=== PATIENT | male | born 1950 | race Caucasian/White ===

== ENCOUNTER 2020-10-24 07:59 | Day surgery (SDC) | payer MEDICARE ==
--- NOTE | 2020-10-23 14:48 | NUR ---
CONFIRMED PT APPT TOMORROW, RIDE POST PROCEDURE, NO BLOOD THINNERS AND NPO AFTER MIDNIGHT
[~2020-10-24] VITALS: Ht 180.3 cm; Wt 90.9 kg
[~2020-10-24 07:59] MED LIST: ALDACTONE100 MG PO; AMBIEN10 MG PO; ASPIRIN325 MG PO; FLAGYL500 MG PO; HYDROCODONE-APA1 TAB PO; KLONOPIN0.5 MG PO; LASIX40 MG PO; LEVAQUIN750 MG PO; LEXAPRO5 MG PO; LISINOPRIL2.5 MG PO; SAW PALMETTO450 MG PO; SOMA350 MG PO; XANAX0.5 MG PO; XANAX1 MG PO; ZESTORETIC 20/21 TAB PO
[2020-10-24 08:33] LABS: APTT 29.4 SECONDS (22.8-39.4); INR 1.3 (0.85-1.17)
[2020-10-24 08:39] LABS: ALBUMIN 2.6 g/dL (3.4-5.0); BILIRUBIN - TOTAL 1.33 mg/dL (0.2-1.3); CALCIUM 8.8 mg/dL (8.5-10.1); CARBON DIOXIDE 34.8 mmol/L (21.0-32.0); CREATININE - SERUM 1.5 mg/dL (0.6-1.3); POTASSIUM - SERUM 3.8 mmol/L (3.5-5.1); PROTEIN - SERUM 9.2 g/dL (6.4-8.2)
[2020-10-24 08:49] LABS: BASOPHILS 0.8 % (0-2); EOSINOPHILS 3.2 % (0-7); HEMATOCRIT 41.6 % (42.0-54.0); HEMOGLOBIN 14.2 g/dL (13.5-17.5); IMMATURE GRANULOCYTES 0.2 % (0-5); LYMPHOCYTES 15.3 % (15-50); MCH 32.1 pg (26.0-34.0); MCHC 34.1 g/dL (31.0-37.0); MCV 94.1 fL (80.0-100.0); MEAN PLATELET VOLUME 9.8 fL (7.4-10.4); MONOCYTES 8.7 % (2-11); NEUTROPHIL ABS# 4.69 10x3/uL (1.78-5.38); NEUTROPHILS 71.8 % (40-80); RBC 4.42 10x6/uL (4.20-6.10); RDW 13.2 % (11.5-14.5); WBC 6.5 10x3/uL (4.8-10.8)
[2020-10-24 08:52] LABS: PLATELET COUNT 202 10x3/uL (130-400)
[2020-10-24 09:04] VITALS: Ht 180.3 cm; Wt 90.9 kg
--- NOTE | 2020-10-24 12:46 | NUR ---
1055 OFFERED PT A TRAY BUT REFUSED. DRINKING FLUIDS.1145 ASSITED TO BATHROOM.
--- NOTE | 2020-10-24 14:45 | NUR ---
1345 IV REMOVED AND INSTRUCTIONS GIVEN TO PT.
== END 2020-10-24 14:15 | disposition home or self-care (01) ==
LOC: D.RAD 07:59
PROVIDERS: Specialist; ATTEND Internal Medicine Hematology & Oncology
DX: R97.8 Other abnormal tumor markers (principal); R18.8 Other ascites; I10 Essential (primary) hypertension; C25.2 Malignant neoplasm of tail of pancreas; K74.60 Unspecified cirrhosis of liver

== ENCOUNTER 2020-11-08 07:50 | Emergency (ER) | payer MEDICARE ==
[~2020-11-08] VITALS: Ht 180.3 cm; Wt 88.6 kg
[2020-11-08 08:30] VITALS: Ht 180.3 cm; Wt 88.6 kg
[2020-11-08 08:48] LABS: BASOPHILS 0.6 % (0-2); EOSINOPHILS 7.9 % (0-7); HEMATOCRIT 40.3 % (42.0-54.0); HEMOGLOBIN 13.6 g/dL (13.5-17.5); IMMATURE GRANULOCYTES 0.2 % (0-5); LYMPHOCYTE ABS# 0.84 10x3/uL (1.32-3.57); LYMPHOCYTES 15.8 % (15-50); MCH 31.6 pg (26.0-34.0); MCHC 33.7 g/dL (31.0-37.0); MCV 93.5 fL (80.0-100.0); MEAN PLATELET VOLUME 9.9 fL (7.4-10.4); MONOCYTES 9.2 % (2-11); NEUTROPHIL ABS# 3.51 10x3/uL (1.78-5.38); NEUTROPHILS 66.3 % (40-80); RBC 4.31 10x6/uL (4.20-6.10); RDW 12.8 % (11.5-14.5); WBC 5.3 10x3/uL (4.8-10.8)
[2020-11-08 08:49] LABS: PLATELET COUNT 150 10x3/uL (130-400)
[2020-11-08 09:15] LABS: ANION GAP 10.4 mmol/L (8-16); CALCIUM 8.4 mg/dL (8.5-10.1); CREATININE - SERUM 1.8 mg/dL (0.6-1.3); POTASSIUM - SERUM 4.4 mmol/L (3.5-5.1)
[2020-11-08 09:19] LABS: ALBUMIN 2.4 g/dL (3.4-5.0); BILIRUBIN - TOTAL 0.91 mg/dL (0.2-1.3); PROTEIN - SERUM 8.5 g/dL (6.4-8.2)
[2020-11-08 10:28] LABS: INR 1.35 (0.85-1.17); PROTIME 15.5 SECONDS (11.6-15.0)
[2020-11-08 14:00] VITALS: BP 112/65
== END 2020-11-08 14:32 | disposition home or self-care (01) ==
LOC: D.ER 07:50
PROVIDERS: Emergency Medicine; Radiology Vascular & Interventional Radiology
DX: R18.8 Other ascites (principal); K86.9 Disease of pancreas, unspecified; K74.60 Unspecified cirrhosis of liver

== ENCOUNTER 2020-11-20 13:12 | Inpatient (IN) | payer MEDICARE ==
[~2020-11-20] VITALS: Ht 180.3 cm; Wt 81.6 kg
[2020-11-20 13:48] LABS: BASOPHILS 1.2 % (0-2); EOSINOPHILS 8.9 % (0-7); HEMOGLOBIN 13.3 g/dL (13.5-17.5); IMMATURE GRANULOCYTES 0.1 % (0-5); LYMPHOCYTE ABS# 0.77 10x3/uL (1.32-3.57); LYMPHOCYTES 11.3 % (15-50); MCH 31.7 pg (26.0-34.0); MCHC 34.1 g/dL (31.0-37.0); MCV 93.1 fL (80.0-100.0); MEAN PLATELET VOLUME 9.8 fL (7.4-10.4); MONOCYTES 11.6 % (2-11); NEUTROPHIL ABS# 4.57 10x3/uL (1.78-5.38); NEUTROPHILS 66.9 % (40-80); PLATELET COUNT 173 10x3/uL (130-400); RBC 4.19 10x6/uL (4.20-6.10); RDW 13.3 % (11.5-14.5); WBC 6.8 10x3/uL (4.8-10.8)
[2020-11-20 13:58] LABS: CALC OSMOLALITY 274 mosm/kg (275-300); CALCIUM 8.5 mg/dL (8.5-10.1); CARBON DIOXIDE 30.1 mmol/L (21.0-32.0); CHLORIDE - SERUM 100 mmol/L (98-107); CREATININE - SERUM 1.4 mg/dL (0.6-1.3); POTASSIUM - SERUM 4.8 mmol/L (3.5-5.1); SODIUM 132 mmol/L (136-145); UREA NITROGEN 28 mg/dL (7-18); eGFR NON AFRICAN AMERICAN 53 mL/min (90-120)
[2020-11-20 13:59] LABS: GLUCOSE 170 mg/dL (74-106)
[2020-11-20 14:13] LABS: APTT 25.8 SECONDS (22.8-39.4); INR 1.28 (0.85-1.17); PROTIME 14.8 SECONDS (11.6-15.0)
[2020-11-20 14:15] LABS: ALBUMIN 2.4 g/dL (3.4-5.0); ALKALINE PHOSPHATASE 234 U/L (30-120); ALT (SGPT) 28 U/L (10-68); AMYLASE - SERUM 29 U/L (25-115); BILIRUBIN - TOTAL 0.98 mg/dL (0.2-1.3); CREATINE KINASE 30 UL (21-232); LIPASE 49 U/L (73-393); MAGNESIUM - SERUM 2.4 mg/dL (1.8-2.4); PROTEIN - SERUM 8.5 g/dL (6.4-8.2); THYROID STIMULATING HORMONE 2.04 uIU/mL (0.36-3.74); TROPONIN-I < 0.017 ng/mL (0.000-0.060)
[2020-11-20 15:10] VITALS: BP 143/90
[2020-11-20 16:20] LABS: UDS - AMPHET NEGATIVE QUAL (NEGATIVE); UDS - BARB NEGATIVE QUAL (NEGATIVE); UDS - BENZO NEGATIVE QUAL (NEGATIVE); UDS - COCAINE NEGATIVE QUAL (NEGATIVE); UDS - OPIATE NEGATIVE QUAL (NEGATIVE); UDS - PCP NEGATIVE QUAL (NEGATIVE); UDS - THC NEGATIVE QUAL (NEGATIVE)
[2020-11-20 16:40] LABS: BILIRUBIN NEGATIVE (NEGATIVE); KETONE NEGATIVE (NEGATIVE); NITRITE NEGATIVE (NEGATIVE); UROBILINOGEN NORMAL mg/dL (< 2)
--- NOTE | 2020-11-20 18:43 | NUR ---
PT TO MRI FOR SCAN OF BRAIN. ONCE POSITIONED AND IN SCANNER PT BECAME AGITATED MOVING, RAISING HEAD, TRYING TO GET OUT OF SCANNER. CALLED ER TO SEE IF DR PIERRE WANTED TO GIVE ANY MEDS BEFORE I RETURNED HIM TO THE ER. PTS NURSE STATED HE DIDN'T WANT TO MEDICATE AND TO NOTE IN THE CHART THAT PT WOULD NOT HOLD STILL. HE IS VERY CONFUSED AND I WAS UNABLE TO GET HIM TO UNDERSTAND WHAT I WAS DOING AND WHY WE NEEDED THIS TEST. I ALSO UPDATED HIS WHO WAS IN HIS ROOM IN THE ER. EXAM WILL BE CANCELLED AT THIS TIME.
--- NOTE | 2020-11-20 18:52 | NUR ---
MRI CALLLED AND STATES THAT PT WILL NOT BE STILL, HE WAS WANTING TO LEAVE. NOTIFIED THAT MRI WAS NOT SUCCESSFUL
[2020-11-20 19:00] VITALS: BP 132/69
--- NOTE | 2020-11-20 19:02 | NUR ---
REPORT GIVEN TO RN ON FLOOR, WITH VERBAL ACKNOWLEDGMENT OBTAINED
--- NOTE | 2020-11-20 19:57 | NUR ---
REPORT RECEIVED, WILL CONT POC. PT ALERT WITH STIMULATION AND ORIENTED TO SELF AND CITY AT TIME. PT NOT ABLE TO IDENTIFY FAMILY IN THE ROOM. AT THIS TIME, PT IS NOT ALERT OR ORIENTED ENOUGH TO ASSESS SUICIDE RISK OR TO OBTAIN A HISTORY. SPOKE WITH SON IN LAW, CHOLO, WHO STATED THAT HE "THINKS" THE PT HAS HTN, AND STATED THAT THE PT HAS A NEW DIAGNOSES OF CHIROSIS OF UNK CAUSE AND PANCREATIC CANCER. CHOLO ALSO STATED THAT PT DOES NOT HAVE A HISTORY OF DRUG ABUSE AND DOES NOT DRINK. CHOLO STATED THAT PT DOES TAKE HYDROCODONE FOR CHRONIC PAIN AND LASIX, THOUGH HE IS UNSURE OF DOSES. CHOLO STATED THAT HE WOULD ATTEMPT TO GET THIS NURSE A LIST OF HIS MEDICATIONS BY THE MORNING, STATED THAT HE DOES KNOW THAT PT TAKES A LOT OF HOME MEDS. BED IS LOCKED AND LOWERED, CL IS IN REACH. BED ALARM ON, PTS ROOM NEAR NURSES STATION WITH DOOR OPEN FOR EASY OBSERVATION. WILL CONT TO MONITOR.
[2020-11-20 23:15] VITALS: BP 132/69; BMI 25.1
[2020-11-21] VITALS (11 sets, daily range): BP systolic 78–113; BP diastolic 39–83
--- NOTE | 2020-11-21 01:22 | NUR ---
RESPONDED TO PTS BED ALARM, PT ATTEMPTING TO GET OUT OF BED. EXPLAINED TO PT THAT HE COULD NOT GET OUT OF BED AT THIS TIME. THIS NURSE WAS ABLE TO ORIENT THE PT X3 FOR THE FIRST TIME SINCE ADMISSION. ASKED PT IF HE REMEMBERS FALLING AT HOME. PT STATED HE DID REMEMBER. ASKED PT IF HE KNOWS WHY HE FELL. PT STATED THAT HE TOOK A BUNCH OF MUSCLE RELAXERS. PT STATED "WHAT'S THE POINT OF LIVING IF IM GOING TO OF THIS CHIROSIS?". ASKED PT IF HE WAS TRYING TO KILL HIMSELF BY TAKING A BUNCH OF MUSCLE RELAXERS. PT STATED THAT HE WAS TRYING TO KILL HIMSELF BUT AFTER TAKING 8 PILLS HE DECIDED HE WANTED TO LIVE AND DID NOT FINISH THE REMAINDER OF THE PILL BOTTLE. ASKED PT HOW HE GOT THE MUSCLE RELAXERS AND WHERE HIS WAS AT THE TIME. PT STATED THAT THE PILLS BELONG TO HIS AND THAT HIS WAS IN THE KITCHEN AT THE TIME HE TOOK THE PILLS. INSTRUCTED CONTROL CABINET ASSEMBLER TO SIT IN ROOM WITH PT FOR SUICIDE WATCH, NOTIFIED HOUSE SUP AND ART COORDINATOR. HOUSE SUP NOTIFIED PSYCH FOR EVAL. WILL CONT TO MONITOR.
--- NOTE | 2020-11-21 02:25 | NUR ---
DR ALBARADO NOTIFIED AND REVIEWED PT's BEHAVIOR AND ASSESSMENT RESULTS. PT IS A LOW RISK PER DR ALBARADO. DR ALBARADO STATED TO GIVE RESOURCES TO PT AT TIME OF DISCHARGE. NO FURTHER ORDERS AT THIS TIME. RESOURCES REVIEWED WITH PT AND HE VERBALIZED UNDERSTANDING.
[2020-11-21 06:24] LABS: BASOPHILS 0.8 % (0-2); EOSINOPHILS 12.6 % (0-7); HEMATOCRIT 35.9 % (42.0-54.0); HEMOGLOBIN 12.1 g/dL (13.5-17.5); IMMATURE GRANULOCYTES 0.2 % (0-5); LYMPHOCYTE ABS# 0.79 10x3/uL (1.32-3.57); LYMPHOCYTES 12.6 % (15-50); MCH 31.3 pg (26.0-34.0); MCHC 33.7 g/dL (31.0-37.0); MCV 92.8 fL (80.0-100.0); MEAN PLATELET VOLUME 9.6 fL (7.4-10.4); MONOCYTES 11.8 % (2-11); NEUTROPHIL ABS# 3.87 10x3/uL (1.78-5.38); PLATELET COUNT 156 10x3/uL (130-400); RBC 3.87 10x6/uL (4.20-6.10); RDW 13.4 % (11.5-14.5); WBC 6.3 10x3/uL (4.8-10.8)
[2020-11-21 06:57] LABS: ALBUMIN 1.9 g/dL (3.4-5.0); ANION GAP 6.5 mmol/L (8-16); BILIRUBIN - TOTAL 0.88 mg/dL (0.2-1.3); CALCIUM 8.2 mg/dL (8.5-10.1); CARBON DIOXIDE 27.8 mmol/L (21.0-32.0); CREATININE - SERUM 1.1 mg/dL (0.6-1.3); MAGNESIUM - SERUM 2.1 mg/dL (1.8-2.4); POTASSIUM - SERUM 4.3 mmol/L (3.5-5.1); PROTEIN - SERUM 7.1 g/dL (6.4-8.2)
--- NOTE | 2020-11-21 07:13 | NUR ---
RECEIVE BEDSIDE SHIFT REPORT. PATIENT DROWSY BUT ORIENTED X4. BED ALARM ON. CALL LIGHT IN REACH. ICED WATER GIVEN. DENIES ANY OTHER NEEDS AT THIS TIME. CONTINUE POC AND SAFETY PRECAUTIONS.
[2020-11-21 10:40] LABS: INR 1.3 (0.85-1.17)
--- NOTE | 2020-11-21 10:41 | NUR ---
STUDENT NURSE NOTIFIED THIS NURSE OF BP 67/36 WITH A MANUAL RECHECK OF 58/36. PAGED ANGI DELANEYN; 1000ML BOLUS ORDERED. WILL RECHECK BP. PATIENT DROWSY.
--- NOTE | 2020-11-21 10:58 | NUR ---
RECHECKED BP 95/56. PATIENT STILL DROWSY BUT AROUSES TO SPEECH
--- NOTE | 2020-11-21 16:45 | NUR ---
PAGED ELAINA, BALDEMAR FOR BP 68/35. ORDERED 500ML BOLUS. NO CRACKLES NOTED IN LUNGS. WILL REASSESS BP. IF DROPS AGAIN WILL PAGE CARDIOLOGY
[2020-11-21] MEDS ORDERED: SOMA250 MG PO (17:40)
--- NOTE | 2020-11-21 17:58 | NUR ---
AFTER 500ML BOLUS PRESSURE 79/48 PATIENT SLEEPING, AROUSES TO VOICE. AT BEDSIDE. CALLED DR. BROWER; ORDERS TO HAVE FLUIDS GOING AT 150ML/HR FOR A FEW HOURS. IF NOT BETTER TONIGHT PAGE AGAIN, MAY NEED TO GO TO ICU.
[2020-11-22] VITALS (14 sets, daily range): BP systolic 98–135; BP diastolic 40–92
[2020-11-22 04:25] LABS: BASOPHILS 0.6 % (0-2); EOSINOPHILS 8.2 % (0-7); HEMATOCRIT 37.3 % (42.0-54.0); HEMOGLOBIN 12.3 g/dL (13.5-17.5); IMMATURE GRANULOCYTES 0.2 % (0-5); LYMPHOCYTE ABS# 0.58 10x3/uL (1.32-3.57); LYMPHOCYTES 10.8 % (15-50); MCH 31.2 pg (26.0-34.0); MCV 94.7 fL (80.0-100.0); MEAN PLATELET VOLUME 10.4 fL (7.4-10.4); MONOCYTES 12.1 % (2-11); NEUTROPHIL ABS# 3.68 10x3/uL (1.78-5.38); NEUTROPHILS 68.1 % (40-80); PLATELET COUNT 171 10x3/uL (130-400); RBC 3.94 10x6/uL (4.20-6.10); RDW 13.3 % (11.5-14.5); WBC 5.4 10x3/uL (4.8-10.8)
[2020-11-22 05:03] LABS: ALBUMIN 1.9 g/dL (3.4-5.0); ANION GAP 9.8 mmol/L (8-16); BILIRUBIN - TOTAL 0.84 mg/dL (0.2-1.3); CALCIUM 7.9 mg/dL (8.5-10.1); CARBON DIOXIDE 25.4 mmol/L (21.0-32.0); MAGNESIUM - SERUM 1.8 mg/dL (1.8-2.4); POTASSIUM - SERUM 4.2 mmol/L (3.5-5.1)
[2020-11-22 05:04] LABS: CREATININE - SERUM 1.4 mg/dL (0.6-1.3)
[2020-11-22 06:07] LABS: INR 1.28 (0.85-1.17); PROTIME 14.8 SECONDS (11.6-15.0)
--- NOTE | 2020-11-22 07:15 | NUR ---
PT LAYING IN BED, ORIENTED TO PERSON AND PLACE, FORGETFUL AT TIMES, CALL LIGHT IN REACH, WILL MONITOR
--- NOTE | 2020-11-22 08:00 | NUR ---
BREAKFAST TRAY SERVED, PT SITTING UP IN RECLINER FEEDING SELF
--- NOTE | 2020-11-22 09:00 | NUR ---
PT BACK IN BED SLEEPING, CALL LIGHT IN REACH, BED ALARM ON, WILL MONITOR
--- NOTE | 2020-11-22 11:00 | NUR ---
PT GETTING OUT OF THE BED AND BEING AGGRESSIVE TOWARD STAFF, SOFT WRIST RESTRAINTS PLACED ON PT AT 1030, 1100: PT CALM AND RESTRAINTS REMOVED AT THIS TIME
--- NOTE | 2020-11-22 11:30 | NUR ---
REPORT CALLED TO KAMILA ON MED SURG
--- NOTE | 2020-11-22 11:52 | NUR ---
PT TRANSFERRED TO 2219 VIA WHEELCHAIR, BELONGINGS SENT WITH PATIENT, PT ALERT AND ORIENTED AT THIS TIME
--- NOTE | 2020-11-22 11:59 | NUR ---
TO ROOM 2220 FROM ICU VIA WHEELCHAIR. PATIENT IS WITHOUT DISTRESS. ORIENTATION TO ROOM. FALL PREVENTION INITIATED.
--- NOTE | 2020-11-22 12:07 | NUR ---
FALL PREVENTION WITH RADHA MAT. BED ALARM BROKEN AND SOUNDS ALL THE TIME.IS INSTRUCTED AND SCD'S PLACED ON PATIENT.RASH NOTED TO LEGS AND SIDES AND PARTIAL BACK (HEALING RASH).
--- NOTE | 2020-11-22 14:55 | NUR ---
CALLED OUT OF ROOM 2217. PATIENT FOUND SITTING IN FLOOR BY YARELI BYERS RN. PATIENT PLACED BACK IN BED. RADHA ALARM TURNED ON. RADHA ALARM HAD BEEN TURNED OFF.
--- NOTE | 2020-11-22 15:30 | NUR ---
SPOKE WITH DOT ETCHERDWIGHT VORA. PATIENT MUST HAVE AND REMAIN ON TELEMETRY AT ALL TIMES OR TRANSFER BACK TO ICU.
--- NOTE | 2020-11-22 15:35 | NUR ---
SR 90 ON MONITOR PER [employer].
--- NOTE | 2020-11-22 16:00 | NUR ---
SPOKE WITH LAND DEVELOPMENT MANAGER TO INFORM HER PATIENT MUST REMAIN ON TELEMETRY AT ALL TIMES OR TRANSFER BACK TO ICU.
--- NOTE | 2020-11-22 16:13 | CN ---
PATIENT NAME:ZEUS SANDERSON SR MEDICAL RECORD: [id number] : 48 LOCATION:D.MS [facility] ADMIT DATE: 11/21/20 ACCOUNT: [id number] CONSULTING PHYSICIAN: ANGELITA ALBARADO MD REFERRING PHYSICIAN: HORTENCIA LANE MD DATE OF CONSULTATION: 11/21/2020 IDENTIFYING DATA: The patient is 70 years old and he was admitted to the hospital secondary to ascites. CHIEF COMPLAINT: Suicidal thoughts. HISTORY OF PRESENT ILLNESS: The patient is a very nice and very sick man. He has what is probably going to cuff turner to be pancreatic cancer. He has been very uncomfortable with the hepatic ascites that is present and tells me that he did decide to kill himself by taking some of his 's muscle relaxants, but then decided not to. He expresses a great deal of helplessness and hopelessness, but goes on to say that he is not going to hurt himself because of the pain it would cause to his . He has had some sort of business arrangement with his son that has not worked out and he is very angry with his son. The patient is limited in his insight, but tells me that he would not hurt himself because of his jew beliefs. ASSESSMENT: Major depression. PLAN: I think the patient should be on antidepressant medication and does need outpatient psychiatric followup. If he has a return of these suicidal thoughts, he will need to be hospitalized on the behavioral unit. I have recommended it to him at this time because of the severity of his depression, but he has declined. As he has never had suicidal thoughts before and has no past psychiatric history, I think it is reasonable to try him as an outpatient and I do not think he currently meets criteria for an involuntary admission to the behavioral unit. TRANSINT:[id number] Voice Confirmation ID: [id number] DOCUMENT ID: [id number] ANGELITA ALBARADO MD at 1613 CC: [id number] DICTATION DATE: 11/21/20 1631 LIGHT BULB TESTER: 11/21/20 2339 ADM IN [facility] [address] [place] [address]
[2020-11-23] VITALS: BP 131/81
[2020-11-23 04:00] VITALS: BP 120/80
[2020-11-23 05:39] LABS: BASOPHILS 0.5 % (0-2); EOSINOPHILS 8.4 % (0-7); HEMATOCRIT 35.8 % (42.0-54.0); HEMOGLOBIN 11.8 g/dL (13.5-17.5); IMMATURE GRANULOCYTES 0.2 % (0-5); LYMPHOCYTE ABS# 0.83 10x3/uL (1.32-3.57); LYMPHOCYTES 14.3 % (15-50); MCH 31.1 pg (26.0-34.0); MCV 94.5 fL (80.0-100.0); MEAN PLATELET VOLUME 10.3 fL (7.4-10.4); MONOCYTES 14.8 % (2-11); NEUTROPHIL ABS# 3.58 10x3/uL (1.78-5.38); NEUTROPHILS 61.8 % (40-80); PLATELET COUNT 176 10x3/uL (130-400); RBC 3.79 10x6/uL (4.20-6.10); RDW 13.8 % (11.5-14.5); WBC 5.8 10x3/uL (4.8-10.8)
--- NOTE | 2020-11-23 06:14 | NUR ---
Pt is in bed resting at this time. Camera is in room for visual. Pt has utilized call light appropriately to request assist t/o the night. Did c/o itching once and rec'd PRN benedryl per order with good results.
[2020-11-23 06:38] LABS: ALBUMIN 2.1 g/dL (3.4-5.0); BILIRUBIN - TOTAL 1.26 mg/dL (0.2-1.3); CALCIUM 7.9 mg/dL (8.5-10.1); CARBON DIOXIDE 22.6 mmol/L (21.0-32.0); CREATININE - SERUM 1.1 mg/dL (0.6-1.3); POTASSIUM - SERUM 3.6 mmol/L (3.5-5.1); PROTEIN - SERUM 7.4 g/dL (6.4-8.2)
[2020-11-23 06:39] LABS: MAGNESIUM - SERUM 2.4 mg/dL (1.8-2.4)
[2020-11-23 06:47] LABS: INR 1.43 (0.85-1.17); PROTIME 16.2 SECONDS (11.6-15.0)
[2020-11-23 08:28] VITALS: BP 117/74
--- NOTE | 2020-11-23 09:58 | EC ---
PATIENT:ZEUS SANDERSON SR DATE OF SERVICE: 11/20/20 SEX: M MEDICAL RECORD: [id number] DATE OF : 48 LOCATION:D.[facility] AGE OF PATIENT: 70 ADMISSION DATE: 11/21/20 REFERRING PHYSICIAN: INTERPRETING PHYSICIAN: ANNE ALEXANDRA MD ECHOCARDIOGRAM REPORT ECHO CHARGES 5 ECHO LIMITED Date: 11/21/20 CLINICAL DIAGNOSIS: ARRY ECHOCARDIOGRAPHIC MEASUREMENTS (adult normal given) AC root (d.<3.7cm) cm LV Septum d (<1.2 cm> 1.1 cm Valve Excursion cm LV Septum (systole) 1.5 cm Left Atria (s.<4.0cm> cm LVPW d(<1.2cm) 1.4 cm RV (d.<2.3cm) 3.6 cm LVPW (sytole) 1.6 cm LV diastole(<5.6CM) 5.5 cm MV E-F(>70mm/sec) cm LV systole 4.3 cm LVOT Diameter 1.8 cm MV exc.(>10mm) 1.5 cm Est.ejection fraction (50-75%) % DOPPLER: LVIT cm/sec A cm/sec E cm/sec LA cm/sec RVSP 26 mmHg LVOT cm/sec AOP1/2T m/s Asc. Ao cm/sec RVOT cm/sec RA cm/sec PA cm/sec AV Gradient Peak mmHg AV Mean mmHg AV Area cm MV Gradient Peak mmHg MV Mean mmHg MV Area cm COMMENTS: Community Services Coordinator: Camila [facility] Systems Support Engineer: 3 Dr. Wing TAPE# Pericardial Effusion N DATE OF SERVICE: Adequate 2D, color-flow imaging, spectral Doppler, and M-Mode FINDINGS: Borderline LVH. LV internal dimensions are normal. Wall motion is normal. EF is greater than or equal to 55%. Aortic valve is tricuspid. No evidence of stenosis by Doppler interrogation. Left atrium grossly appears normal. Mitral valve shows no prolapse. Trivial MR. Right side is grossly normal. Trivial TR. ECHOCARDIOGRAM REPORT [id number] ZEUS SANDERSON SR TRANSINT:[id number] Voice Confirmation ID: [id number] DOCUMENT ID: [id number] ANNE ALEXANDRA MD at 0958 CC: [id number] DICTATION DATE: 11/21/20 1154 TRIBAL COUNCIL MEMBER: 11/21/20 1302 ADM IN [facility] [address] [facility] [address]
--- NOTE | 2020-11-23 10:00 | NUR ---
ASSESSMENT PER FLOW SHEET. PATIENT IS WITHOUT DISTRESS. FALL PREVENTION IN PLACE. MONITOR. DOOR OPEN
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
[2020-11-23 13:06] VITALS: BP 119/72
[2020-11-23 13:36] VITALS: Ht 180.3 cm; Wt 81.6 kg
--- NOTE | 2020-11-23 15:07 | NUR ---
FAMILY TO VISIT. PATIENT IS WITHOUT NEEDS.CALL LIGHT IN REACH
[2020-11-23 17:02] VITALS: BP 112/77
[2020-11-23 19:35] VITALS: BP 141/88
[2020-11-24 00:38] VITALS: BP 126/85
--- NOTE | 2020-11-24 03:00 | NUR ---
I have reviewed this patient and I concur with the Shift Assessment completed by the Licensed Practical Nurse today this shift.
[2020-11-24 05:12] LABS: BASOPHILS 0.7 % (0-2); EOSINOPHILS 10.4 % (0-7); HEMATOCRIT 33.2 % (42.0-54.0); IMMATURE GRANULOCYTES 0.2 % (0-5); LYMPHOCYTE ABS# 0.88 10x3/uL (1.32-3.57); MCH 31.3 pg (26.0-34.0); MCHC 33.1 g/dL (31.0-37.0); MCV 94.3 fL (80.0-100.0); MEAN PLATELET VOLUME 9.9 fL (7.4-10.4); MONOCYTES 13.1 % (2-11); NEUTROPHIL ABS# 3.27 10x3/uL (1.78-5.38); NEUTROPHILS 59.6 % (40-80); PLATELET COUNT 154 10x3/uL (130-400); RBC 3.52 10x6/uL (4.20-6.10); RDW 13.7 % (11.5-14.5); WBC 5.5 10x3/uL (4.8-10.8)
[2020-11-24 05:21] LABS: INR 1.23 (0.85-1.17); PROTIME 14.4 SECONDS (11.6-15.0)
[2020-11-24 05:29] LABS: ALBUMIN 1.9 g/dL (3.4-5.0); ANION GAP 11.7 mmol/L (8-16); BILIRUBIN - TOTAL 1.09 mg/dL (0.2-1.3); CALCIUM 7.9 mg/dL (8.5-10.1); CREATININE - SERUM 1.1 mg/dL (0.6-1.3); POTASSIUM - SERUM 3.7 mmol/L (3.5-5.1); PROTEIN - SERUM 6.9 g/dL (6.4-8.2)
[2020-11-24 08:46] VITALS: BP 117/67
--- NOTE | 2020-11-24 10:19 | NUR ---
RESTING IN BED, EYES CLOSED, NO DISTRESS NOTED, IV INFUSING PER L WRIST, BED ALARMS ON, CONT TO MONITOR SAFETY AND DT
[2020-11-24 12:30] VITALS: BP 129/71
--- NOTE | 2020-11-24 16:11 | NUR ---
IN ROOM, CONT TO MONITOR FOR DT SYMPTOMS
--- NOTE | 2020-11-24 16:40 | NUR ---
CALLED TO ROOM BY TO FIND PT IN THE FLOOR IN THE BATHROOM, NO INJURIES NOTED, PT DENIES PAIN, RETURNED TO BED BY ZIGGY FREITAS AND KELLY FREITAS, AYESHA LOJA, ROLLING MILL OPERATOR AND SANDIE REYES AWARE
[2020-11-24 18:07] VITALS: BP 139/90
--- NOTE | 2020-11-24 19:00 | NUR ---
BEDSIDE REPORT RECEIVED AND CARE OF PT ASSUMED. PT LYING IN SUPINE POSITION AT THIS TIME...AGGITATED AND TRYING TO GET OUT OF BED. ASSISTED PT IN USING URINAL. POSITIONED FOR COMFORT.
[2020-11-24 20:54] VITALS: BP 121/70
--- NOTE | 2020-11-24 20:57 | NUR ---
HS MEDICATIONS GIVEN. WILL CONTINUE TO MONITOR FOR NEEDS.
--- NOTE | 2020-11-24 22:48 | NUR ---
PT RESTING ON LEFT SIDE WITH EYES CLOSED. VIDEO MONITORING IN PROGRESS. SIDE RAILS UP X2 FOR SAFETY. BED ALARM IN USE.
[2020-11-25 01:09] VITALS: BP 131/76
[2020-11-25 05:39] VITALS: BP 115/72
[2020-11-25 05:59] LABS: BASOPHILS 0.6 % (0-2); HEMATOCRIT 35.6 % (42.0-54.0); HEMOGLOBIN 11.8 g/dL (13.5-17.5); IMMATURE GRANULOCYTES 0.3 % (0-5); LYMPHOCYTE ABS# 0.96 10x3/uL (1.32-3.57); MCH 31.4 pg (26.0-34.0); MCHC 33.1 g/dL (31.0-37.0); MCV 94.7 fL (80.0-100.0); MEAN PLATELET VOLUME 10.2 fL (7.4-10.4); MONOCYTES 11.1 % (2-11); NEUTROPHIL ABS# 4.02 10x3/uL (1.78-5.38); PLATELET COUNT 170 10x3/uL (130-400); RBC 3.76 10x6/uL (4.20-6.10); RDW 13.9 % (11.5-14.5); WBC 6.4 10x3/uL (4.8-10.8)
[2020-11-25 06:07] LABS: PROTIME 16.6 SECONDS (11.6-15.0)
[2020-11-25 06:17] LABS: ALBUMIN 2.1 g/dL (3.4-5.0); ANION GAP 12.9 mmol/L (8-16); BILIRUBIN - TOTAL 1.1 mg/dL (0.2-1.3); CALCIUM 7.7 mg/dL (8.5-10.1); CARBON DIOXIDE 23.5 mmol/L (21.0-32.0); CREATININE - SERUM 1.1 mg/dL (0.6-1.3); POTASSIUM - SERUM 3.4 mmol/L (3.5-5.1); PROTEIN - SERUM 7.4 g/dL (6.4-8.2)
[2020-11-25 06:28] LABS: INR 1.48 (0.85-1.17)
--- NOTE | 2020-11-25 09:08 | NUR ---
AAOX2, DISORIENTED TO TIME AND SITUATION. SITUATED COMFORTABLY IN BED. SAT UPRIGHT, EATING BREAKFAST. ADMINISTERED MEDICATION, NO DIFFICULTIES. DENIES ANY NEEDS AT THIS TIME. BED IN LOWEST POSITION, BED RAILS X2, WITH TRAY OVER LAP. WILL CONTINUE POC.
[2020-11-25 09:11] VITALS: BP 112/69
--- NOTE | 2020-11-25 11:11 | NUR ---
I have reviewed this patient and I concur with the Shift Assessment completed by the Licensed Practical Nurse today this shift.
[2020-11-25 13:08] VITALS: BP 113/62
--- NOTE | 2020-11-25 15:21 | NUR ---
ADMINISTERED MEDICATION, NO DIFFICULTIES. RESTING IN BED. FAMILY AT BEDSIDE. DENIES ANY NEEDS AT THIS TIME. WILL CONTINUE POC.
[2020-11-25 17:16] VITALS: BP 113/69
--- NOTE | 2020-11-25 19:00 | NUR ---
BEDSIDE REPORT RECEIVED AND CARE OF PT ASSUMED. PT LYING IN SUPINE POSITION WITH EYES CLOSED. IV TO LEFT HAND PATENT WITH NS INFUSING AT 100 ML/HR. TELEMETRY IN PLACE PER ORDER AND READING SR AT THIS ASSESSMENT. BED ALARM AND VIDEO MONITORING IN USE FOR SAFETY.
[2020-11-25 20:19] VITALS: BP 126/79
--- NOTE | 2020-11-25 20:21 | NUR ---
HS MEDICATIONS GIVEN. WILL CONTINUE TO MONITOR FOR NEEDS.
[2020-11-26 04:58] LABS: BASOPHILS 0.7 % (0-2); EOSINOPHILS 10.2 % (0-7); HEMOGLOBIN 11.4 g/dL (13.5-17.5); IMMATURE GRANULOCYTES 0.2 % (0-5); LYMPHOCYTE ABS# 0.85 10x3/uL (1.32-3.57); LYMPHOCYTES 15.8 % (15-50); MCH 31.8 pg (26.0-34.0); MCHC 33.5 g/dL (31.0-37.0); MCV 94.7 fL (80.0-100.0); MEAN PLATELET VOLUME 10.1 fL (7.4-10.4); NEUTROPHIL ABS# 3.23 10x3/uL (1.78-5.38); NEUTROPHILS 60.1 % (40-80); PLATELET COUNT 155 10x3/uL (130-400); RBC 3.59 10x6/uL (4.20-6.10); WBC 5.4 10x3/uL (4.8-10.8)
[2020-11-26 05:32] LABS: ALBUMIN 1.9 g/dL (3.4-5.0); ALKALINE PHOSPHATASE 140 U/L (30-120); ALT (SGPT) 23 U/L (10-68); BILIRUBIN - TOTAL 1.03 mg/dL (0.2-1.3); CALC OSMOLALITY 275 mosm/kg (275-300); CALCIUM 7.8 mg/dL (8.5-10.1); CARBON DIOXIDE 23.8 mmol/L (21.0-32.0); CHLORIDE - SERUM 109 mmol/L (98-107); GLUCOSE 87 mg/dL (74-106); POTASSIUM - SERUM 3.6 mmol/L (3.5-5.1); PROTEIN - SERUM 6.8 g/dL (6.4-8.2); SODIUM 139 mmol/L (136-145); UREA NITROGEN 10 mg/dL (7-18); eGFR NON AFRICAN AMERICAN 78 mL/min (90-120)
[2020-11-26 06:06] VITALS: BP 133/85
--- NOTE | 2020-11-26 07:20 | NUR ---
LYING IN BED,WITHOUT DISTRESS. DOOR OPEN. FALL PREVENTION IN PLACE
--- NOTE | 2020-11-26 07:32 | NUR ---
PATIENT ASLEEP ON LEFT SIDE, EVEN RISE AND FALL OF CHEST, NO SIGNS OF DISTRESS, CL IN REACH BED ALARM ON, VIDEO MONITOR ON, IV IN LT HAND PATENT, SITE, CDI, ON RA, LUNGS CTA, ABD SLIGHTLY DISTENDED, CONTINUE WITH PLAN OF CARE
[2020-11-26 08:39] VITALS: BP 145/82
--- NOTE | 2020-11-26 12:01 | NUR ---
RECEIVED ORDERS TO OBTAIN CONSENT FOR PARACENTESIS, CALLED AND SPOKE TO PT SPOUSE STEVEN AND OBTAINED PHONE CONSENT. CONTINUE WITH PLAN OF CARE
[2020-11-26 12:03] VITALS: BP 105/56
--- NOTE | 2020-11-26 13:08 | MORECARE ---
CASE MANAGEMENT DISCHARGE SUMMARY PATIENT: ZEUS SANDERSON SR UNIT: [id number] ADM DATE: 11/21/20 AGE: 70 : 49 SEX: M ROOM/BED: D.2220 AUTHOR: POLO,DOC PHYSICIAN: REFERRING PHYSICIAN: HORTENCIA LANE MD DATE OF SERVICE: 11/26/20 Case Management Discharge Planning Summary CT Patient Name: ZEUS SANDERSON Attending MD : JIN MELGAR Medical Record: [id number] Encounter : [id number] Facility : [address] [place] [address] Admission Date : 112:50 Center Discharge Date : [address] [place] [address] Date of : DC Plan ID : [id number] Age/Sex/Martia : 70/ M/M Printed on : 11/26/20 13:07 CT DCP Review Details Anticipated D/C: Expected LOS : Case Status : INITIATED - Initial Reviewe: [id number] - Rosa Isela Montez Initial Review: 11/20/2020 Planned Disposi: 01 - Home or Self Care (Routine Discharge) Final Discharge: - Final Reviewer : : Final Review : DCP Focus Questions & Answers [facility] ZEUS SANDERSON MR#: [id number] /Age/Sex/Dkhgxx10-[id number]-56 //M /M Attending Physician Name: ALEXEY LANE [id number] Patient Account:[id number] [facility] Page -1 of 1 All edits/amendments must be made on the electronic document DICTATION DATE: 11/26/20 1307 NEEDLE LEADER: LARS 11/26/20 1307 RPT#: [id number] DC DATE: STATUS: ADM IN [facility] [address] [place] [address] END OF REPORT
--- NOTE | 2020-11-26 13:36 | MORECARE ---
CASE MANAGEMENT DISCHARGE SUMMARY PATIENT: ZEUS SANDERSON SR UNIT: [id number] ADM DATE: 11/21/20 AGE: 70 : 49 SEX: M ROOM/BED: D.2220 AUTHOR: POLO,DOC PHYSICIAN: REFERRING PHYSICIAN: HORTENCIA LANE MD DATE OF SERVICE: 11/26/20 Case Management Discharge Planning Summary CT Patient Name: ZEUS SANDERSON Attending MD : JIN MELGAR Medical Record: [id number] Encounter : [id number] Facility : [address] [place] [address] Medical Admission Date : 112:50 Center Discharge Date : [address] [place] [address] Date of : DC Plan ID : [id number] Age/Sex/Martia : 70/ M/M Printed on : 11/26/20 13:35 CT DCP Review Details Anticipated D/C: Expected LOS : Case Status : INITIATED - Initial Reviewe: [id number] - Rosa Isela Montez Initial Review: 11/20/2020 Planned Disposi: 01 - Home or Self Care (Routine Discharge) Final Discharge: - Final Reviewer : : Final Review : Comments CT Entered Date Type Reviewer 11/26/20 13:13 CT Discharge Planning Rosa Isela Montez Comment CM met with patient to complete initial dc planning assessment. CM educated patient on the CM role and verbal consent given by patient to complete assessment. Patient is very hard of hearing, but also appeared to be confused. I called his and spoke with Steven about his PLOF and DC plans. She stated that he was independent with his care 9 for the most part) at home. She also stated that she thought he was confused yesterday. Patient lives at home with his spouse. CM discussed availability of home health, rehab services, and medical equipment. She was unsure of what discharge needs/plan he will need. She stated that Dr Burgess is his PCP and he uses [facility]. She was also concerned because she stated that the nurse told her that he was getting medicine because of ETOH abuse, she wanted that removed from his record. She stated that he does not and has never drank. I have shared this information with Elizabeth Choi APN. CM will continue to follow and will assist as needed with dc plans/needs. DCP Focus Questions & Answers DCP Screen High Risk Factors: 3 or more ED visits within the last 60 days DCP Evaluation Patient's ability to cope with chronic illness c. Inadequate (3+ ED visits in 6 mos., readmits within 30 days, 2+ hospital admissions in 1 yr.) Patient and/or caregiver agree upon recommended Yes discharge plan? Family / Caregiver's ability to cope with chronic a. Adequate (ability to meet patient's illness: medical needs, ensures patient attends medical appts.) Patient's current cognitive status: Confused Patient gives permission to discuss discharge , STEVEN plans with: (name, relationship and number) Does the patient have the ability to pay for or Yes attain post discharge needs / services? Functional screen assessment: New onset in difficulty in gait, balance, or transfer difficulties Family / Caregiver's ability to cope with chronic a. Adequate (ability to meet patient's illness: medical needs, ensures patient attends medical appts.) Physical Status: Hearing impaired Physical Status: Independent with ADL's Equipment needed for post hospitalization: Walker - Rolling Is there a likelihood that the patient will Yes require additional services to return to the preadmission environment? Living Arrangements: Home with Spouse/Significant Other Other Equipment comments: MAY NEED A WALKER? Results of this evaluation have been discussed Spouse with: Living arrangements comments: LIVES WITH SPOUSE Baseline cognitive status: Confused Physical environment modification needed / Yes anticipated for discharge: Medication Management: Patient states can afford medications Planned post hospital services available for No patient? Pharmacy name(s): [facility] Planned post hospital services covered by Yes insurance plan? Does Patient have transportation to get home and Yes to follow-up medical appointments when discharged from the hospital? Would patient like to participate in any Care Not applicable Coordination programs (if applicable): Does the patient have electricity at home? Yes Does the patient have running water in their Yes house? Equipment in use: None Other Equipment comments: X 1 STEP Mental health screen: No mental health history Psychosocial status: Adult with cognitive limitations Abuse/Neglect: None DCP Re-evaluation Would patient like to participate in any Care Not applicable Coordination programs (if applicable): [facility] ZEUS SANDERSON MR#: [id number] /Age/Sex/Njcoxy58-Fsu-25 /70/M /M Attending Physician Name: ALEXEY LANE [id number] Patient Account:[id number] [facility] Page -1 of 1 All edits/amendments must be made on the electronic document DICTATION DATE: 11/26/201334 FINANCIAL RETIREMENT PLAN SPECIALIST: LARS 11/26/201334 RPT#: [id number] DC DATE: STATUS: ADM IN [facility] [address] [place] [address] END OF REPORT
--- NOTE | 2020-11-26 14:01 | NUR ---
RECEIVED PATIENT BACK FROM IR, PATIENT IS ASLEEP, SPOUSE AT BEDSIDE, FREQUENT VITALS TAKEN. PER RN KATHY, 6.5L TAKEN OFF. CONTINUE WITH PLAN OF CARE
--- NOTE | 2020-11-26 14:55 | NUR ---
PATIENT SPOUSE AT BEDSIDE WHEN CHEDULED LIBRIUM WAS TO BE ADMINISTERED, SPOUSE ASKED WHAT IT WAS EXPLAINED HE HAS SCHEDULED LIBRIUM, PATIENT SPOUSE THEN STATED SHE TOLD NURSE YESTERDAY SKYE PATIENT DOES NOT DRINK AND DOES NOT NEED THIS, EXPLAINED THAT THIS MEDICATION IS USED TO TREAT OTHER SYMPTOMS WELL SUCH ANXIETY AND SPOUSE STATED SHE WAS TOLD BY OTHER NURSE IT IS DUE TO HIS DRINKING AND DOES NOT WANT HIM TO HAVE IT BECAUSE HE DOESN'T DRINK. UNABLE TO REASON WITH SPOUSE CONTINUE WITH PLAN OF CARE
[2020-11-26 16:43] VITALS: BP 101/64
--- NOTE | 2020-11-26 17:02 | NUR ---
PATIENT ASLEEP IN BED, SPOUSE AT BEDSIDE EATING PATIENT DINNER TRAY. NO SIGNS OF DISTRESS FROM PATIENT, CL IN REACH. CONTINUE WITH PLAN OF CARE
[2020-11-26 20:00] VITALS: BP 109/66
[2020-11-27 04:00] VITALS: BP 113/73
--- NOTE | 2020-11-27 04:14 | NUR ---
I have reviewed this patient and I concur with the Shift Assessment completed by the Licensed Practical Nurse today this shift.
[2020-11-27 05:48] LABS: EOSINOPHILS 9.8 % (0-7); HEMATOCRIT 36.3 % (42.0-54.0); HEMOGLOBIN 12.3 g/dL (13.5-17.5); IMMATURE GRANULOCYTES 0.2 % (0-5); LYMPHOCYTE ABS# 0.81 10x3/uL (1.32-3.57); LYMPHOCYTES 15.6 % (15-50); MCH 31.8 pg (26.0-34.0); MCHC 33.9 g/dL (31.0-37.0); MCV 93.8 fL (80.0-100.0); MEAN PLATELET VOLUME 9.7 fL (7.4-10.4); MONOCYTES 11.5 % (2-11); NEUTROPHIL ABS# 3.22 10x3/uL (1.78-5.38); NEUTROPHILS 61.9 % (40-80); PLATELET COUNT 164 10x3/uL (130-400); RBC 3.87 10x6/uL (4.20-6.10); RDW 13.9 % (11.5-14.5); WBC 5.2 10x3/uL (4.8-10.8)
[2020-11-27 06:29] LABS: ALKALINE PHOSPHATASE 144 U/L (30-120); ALT (SGPT) 21 U/L (10-68); BILIRUBIN - TOTAL 1.15 mg/dL (0.2-1.3); CALC OSMOLALITY 276 mosm/kg (275-300); CALCIUM 7.6 mg/dL (8.5-10.1); CARBON DIOXIDE 22.6 mmol/L (21.0-32.0); CHLORIDE - SERUM 107 mmol/L (98-107); GLUCOSE 86 mg/dL (74-106); POTASSIUM - SERUM 3.8 mmol/L (3.5-5.1); PROTEIN - SERUM 6.8 g/dL (6.4-8.2); SODIUM 139 mmol/L (136-145); eGFR NON AFRICAN AMERICAN 78 mL/min (90-120)
[2020-11-27 06:32] LABS: UREA NITROGEN 13 mg/dL (7-18)
[2020-11-27 09:04] VITALS: BP 145/69
--- NOTE | 2020-11-27 12:35 | NUR ---
LYING IN BED,WITHOUT DISTRESS.DOOR OPEN TO MONITOR
--- NOTE | 2020-11-27 13:47 | NUR ---
IV PULLED OUT BY PATIENT WITH CATH TIP INTACT. HE IS UP AT BEDSIDE. PATIENT STATES HE IS LEAVING TO GO HOME TODAY. INSTRUCTED PATIENT TO STAY IN BED. RADHA ALARM ON AND WORKING
--- NOTE | 2020-11-27 13:51 | NUR ---
Nutrition follow-up: Diet order: Consistent CHO PO Intake ~25-50% of some meals Pt is s/p paracentesis with 6200 ml out; hopeful appetite with improve now Labs reviewed Wt: 180# Will continue to provide food choices with selective menus and honor food preferences within diet restrictions. Will offer nutritional supplements with meals Follow-up:
--- NOTE | 2020-11-27 15:41 | PN ---
PATIENT:ZEUS SANDERSON SR MEDICAL RECORD: [id number] LOCATION:D.[facility] ADMISSION DATE: 11/21/20 PROGRESS NOTE DATE OF SERVICE: 11/26/2020 SUBJECTIVE: The patient's case was discussed with staff. He has no new complaint. OBJECTIVE: The patient is oriented and has a depressed mood. He denies any psychotic symptoms as well as thoughts of harming himself or others. He once again is angry with his son and when asked about that specifically, becomes very angry. He is taking antidepressant medication and he is continuing to be evaluated for what is almost certainly a malignancy. His prognosis from a medical standpoint is beyond the scope of my abilities, but it certainly appears that it is not favorable. ASSESSMENT: Major depression. PLAN: I think this patient is not acutely dangerous to himself, but in a long-term consideration, he may well hurt himself. I will continue to monitor him and would recommend that regular interactions from staff also involve asking him about suicidal intent. TRANSINT:[id number] Voice Confirmation ID: [id number] DOCUMENT ID: [id number] ANGELITA ALBARADO MD at 1541 CC: [id number] DICTATION DATE: 11/26/20 1628 RVDA MASTER CERTIFIED RV TECHNICIAN: 11/27/20 0041 ADM IN [facility] [address] [place] [id number]
--- NOTE | 2020-11-27 15:58 | NUR ---
OT NOTE: PT COMPLETED UB GROOMING WITH SETUP. PT COMPLETED BED MOB WITH MIN A. PT COMPLETED ADL MOB WITH CGA. [phone] THANK YOU,SETH HOBBS
[2020-11-27 15:59] VITALS: BP 79/49
--- NOTE | 2020-11-27 17:20 | NUR ---
PATIENT AGITATED EARLIER, TOOK IV OUT STATED HE WAS GOING HOME, ABLE TO CALM PATIENT DOWN AND GET HIM BACK GONZALEZ BED, SPOUSE CAME LATER AND STATED SHE HAD NOT HEARD FROM ANYONE ABOUT HIM GOING HOME. PATIENT NOW ASLEEP NO SIGNS OF DISTRESS, CL IN REACH CONTINUE WITH PLAN OF CARE
[2020-11-27 20:00] VITALS: BP 100/56
--- NOTE | 2020-11-27 21:05 | NUR ---
pt asking if he can leave. reoriented him to time and situation. informed him no discharge orders have been put in and he will likely be here until the morning at the very least. pt verbalized understanding. ctm.
--- NOTE | 2020-11-27 23:51 | NUR ---
I have reviewed this patient and I concur with the Shift Assessment completed by the Licensed Practical Nurse today this shift.
[2020-11-28] VITALS: BP 111/57
[2020-11-28 03:36] VITALS: BP 108/71
[2020-11-28 06:21] LABS: BASOPHILS 1.2 % (0-2); EOSINOPHILS 8.4 % (0-7); HEMATOCRIT 37.4 % (42.0-54.0); HEMOGLOBIN 12.5 g/dL (13.5-17.5); IMMATURE GRANULOCYTES 0.2 % (0-5); LYMPHOCYTE ABS# 0.91 10x3/uL (1.32-3.57); LYMPHOCYTES 18.6 % (15-50); MCH 31.3 pg (26.0-34.0); MCHC 33.4 g/dL (31.0-37.0); MCV 93.7 fL (80.0-100.0); NEUTROPHILS 63.6 % (40-80); PLATELET COUNT 162 10x3/uL (130-400); RBC 3.99 10x6/uL (4.20-6.10); RDW 13.9 % (11.5-14.5); WBC 4.9 10x3/uL (4.8-10.8)
[2020-11-28 06:39] LABS: ALBUMIN 1.9 g/dL (3.4-5.0); ANION GAP 8.7 mmol/L (8-16); BILIRUBIN - TOTAL 0.93 mg/dL (0.2-1.3); CALCIUM 7.7 mg/dL (8.5-10.1); CARBON DIOXIDE 27.3 mmol/L (21.0-32.0); CREATININE - SERUM 1.2 mg/dL (0.6-1.3)
[2020-11-28 08:44] VITALS: BP 114/86
--- NOTE | 2020-11-28 09:14 | NUR ---
PATIENT SITTING UP ON SIDE OF BED ATTEMPTING TO GET UP, PLACED BEDSIDE TABLE IN FRONT OF PATIENT WITH BREAKFAST TRAY AND ENCOURAGED HIM TO EAT BREAKFAST, PATIENT IS FEEDING HIMSELF, NO SIGNS OF DISTRESS, CL IN REACH CONTINUE WITH PLAN OF CARE
--- NOTE | 2020-11-28 10:45 | NUR ---
PATIENT IN BED CRYING, WANTS TO GO HOME AND NOT CERTAIN WHY HE S STILL HERE, EXPLAINED WE ARE STILL TRYING TO GET HIM BETTER SO HE CAN GO HOME. PHYSICAL THERAPY WITH PATIENT. CONTINUE WITH HELEN OF CARE
[2020-11-28 14:00] VITALS: BP 121/67
--- NOTE | 2020-11-28 14:24 | MORECARE ---
CASE MANAGEMENT DISCHARGE SUMMARY PATIENT: ZEUS SANDERSON SR UNIT: [id number] ADM DATE: 11/21/20 AGE: 70 : 49 SEX: M ROOM/BED: D.2220 AUTHOR: POLO,DOC PHYSICIAN: REFERRING PHYSICIAN: HORTENCIA LANE MD DATE OF SERVICE: 11/28/20 Case Management Discharge Planning Summary COMMENTS ENTERED DATE: 11/28/20 13:33 CT COMMENT TYPE: Discharge Planning REVIEWER: Rosa Isela Montez I spoke with about the anticipated discharge today. She stated that they will be staying with her granddaughter Karolyn for a little bit till she knows she can do it on her own. Karolyn Hicks ( granddaughter) [address] [facility] [id number] IMM SERVED AND EXPLAINED. [facility] CAN TAKE THE PATIENT THE SOONEST. I HAVE REACHED OUT TO CARE IV THEY WILL BE ABLE TO SEE THE PATIENT THEY CAN SEE HIM ON THURSDAY PER THE HE HAS A WALKER AT HOME FOR HIM CM TO FOLLOW AND ASSIST NEEDED ENTERED DATE: 11/26/20 13:13 CT COMMENT TYPE: Discharge Planning REVIEWER: Rosa Isela Montez CM met with patient to complete initial dc planning assessment. CM educated patient on the CM role and verbal consent given by patient to complete assessment. Patient is very hard of hearing, but also appeared to be confused. I called his and spoke with Steven about his PLOF and DC plans. She stated that he was independent with his care 9 for the most part) at home. She also stated that she thought he was confused yesterday. Patient lives at home with his spouse. CM discussed availability of home health, rehab services, and medical equipment. She was unsure of what discharge needs/plan he will need. She stated that Dr Burgess is his PCP and he uses [facility]. She was also concerned because she stated that the nurse told her that he was getting medicine because of ETOH abuse, she wanted that removed from his record. She stated that he does not and has never drank. I have shared this information with Elizabeth Choi APN. CM will continue to follow and will assist as needed with dc plans/needs. 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 Inadequate (3+ ED visits in 6 mos., readmits within 30 days, 2+ hospital admissions in 1 yr.) Patient and/or caregiver agree upon recommended discharge plan? : Yes Family / Caregiver's ability to cope with chronic illness: : a. Adequate (ability to meet patient's medical needs, ensures patient attends medical appts.) Patient's current cognitive status: : Confused Patient gives permission to discuss discharge plans with: (name, relationship and number) : , STEVEN Does the patient have the ability to pay for or attain post discharge needs / services? : Yes Functional screen assessment: : New onset in difficulty in gait, balance, or transfer difficulties Family / Caregiver's ability to cope with chronic illness: : a. Adequate (ability to meet patient's medical needs, ensures patient attends medical appts.) Physical Status: : Hearing impaired Physical Status: : Independent with ADL's Equipment needed for post hospitalization: : Walker - Rolling Is there a likelihood that the patient will require additional services to return to the preadmission environment? : Yes Living Arrangements: : Home with Spouse/Significant Other Other Equipment comments: : MAY NEED A WALKER? Results of this evaluation have been discussed with: : Spouse Living arrangements comments: : LIVES WITH SPOUSE Baseline cognitive status: : Confused Physical environment modification needed / anticipated for discharge: : Yes Medication Management: : Patient states can afford medications Planned post hospital services available for patient? : No Pharmacy name(s): : [facility] Planned post hospital services covered by insurance plan? : Yes Does Patient have transportation to get home and to follow-up medical appointments when discharged from the hospital? : Yes Would patient like to participate in any Care Coordination programs (if applicable): : Not applicable Does the patient have electricity at home? : Yes Does the patient have running water in their house? : Yes Equipment in use: : None Other Equipment comments: : X 1 STEP Mental health screen: : No mental health history Psychosocial status: : Adult with cognitive limitations Abuse/Neglect: : None DCP Re-evaluation QUESTION: ANSWER Would patient like to participate in any Care Coordination programs (if applicable): : Not applicable PATIENT: ZEUS SANDERSON ENCOUNTER: [id number] MEDICAL RECORD#: [id number] ADMISSION DATE: 11/21/2020 DISCHARGE DATE: ATTENDING MD: JIN LUZ : AGE: 70 MARITAL STATUS: M DC PLAN ID: [id number] FACILITY: [facility] PRINTED ON: 11/28/20 14:24 CT All edits/amendments must be made on the electronic document DICTATION DATE: 11/28/201423 WIRELINE OPERATOR: LARS 11/28/20 142 RPT#: [id number] DC DATE: STATUS: ADM IN [facility] [address] [place] [address] END OF REPORT
--- NOTE | 2020-11-28 14:38 | MORECARE ---
CASE MANAGEMENT DISCHARGE SUMMARY PATIENT: ZEUS SANDERSON SR UNIT: [id number] ADM DATE: 11/21/20 AGE: 70 : 49 SEX: M ROOM/BED: D.2220 AUTHOR: POLO,DOC PHYSICIAN: REFERRING PHYSICIAN: HORTENCIA LANE MD DATE OF SERVICE: 11/28/20 Case Management Discharge Planning Summary COMMENTS ENTERED DATE: 11/28/20 14:28 CT COMMENT TYPE: Discharge Planning REVIEWER: Rosa Isela Montez CARE [facility] WILL ACCEPT THE PATIENT AND WILL BE ABLE TO START CARE TOMORROW ENTERED DATE: 11/28/20 13:33 CT COMMENT TYPE: Discharge Planning REVIEWER: Rosa Isela Montez I spoke with about the anticipated discharge today. She stated that they will be staying with her granddaughter Karolyn for a little bit till she knows she can do it on her own. Karolyn Hicks ( granddaughter) [address] [facility] [place] [address] IMM SERVED AND EXPLAINED. [facility] CAN TAKE THE PATIENT THE SOONEST. I HAVE REACHED OUT TO CARE IV THEY WILL BE ABLE TO SEE THE PATIENT THEY CAN SEE HIM ON THURSDAY PER THE HE HAS A WALKER AT HOME FOR HIM CM TO FOLLOW AND ASSIST NEEDED ENTERED DATE: 11/26/20 13:13 CT COMMENT TYPE: Discharge Planning REVIEWER: Rosa Isela Montez CM met with patient to complete initial dc planning assessment. CM educated patient on the CM role and verbal consent given by patient to complete assessment. Patient is very hard of hearing, but also appeared to be confused. I called his and spoke with Steven about his PLOF and DC plans. She stated that he was independent with his care 9 for the most part) at home. She also stated that she thought he was confused yesterday. Patient lives at home with his spouse. CM discussed availability of home health, rehab services, and medical equipment. She was unsure of what discharge needs/plan he will need. She stated that Dr Burgess is his PCP and he uses [facility]. She was also concerned because she stated that the nurse told her that he was getting medicine because of ETOH abuse, she wanted that removed from his record. She stated that he does not and has never drank. I have shared this information with Elizabeth Choi APN. CM will continue to follow and will assist as needed with dc plans/needs. 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 Inadequate (3+ ED visits in 6 mos., readmits within 30 days, 2+ hospital admissions in 1 yr.) Patient and/or caregiver agree upon recommended discharge plan? : Yes Family / Caregiver's ability to cope with chronic illness: : a. Adequate (ability to meet patient's medical needs, ensures patient attends medical appts.) Patient's current cognitive status: : Confused Patient gives permission to discuss discharge plans with: (name, relationship and number) : , STEVEN Does the patient have the ability to pay for or attain post discharge needs / services? : Yes Functional screen assessment: : New onset in difficulty in gait, balance, or transfer difficulties Family / Caregiver's ability to cope with chronic illness: : a. Adequate (ability to meet patient's medical needs, ensures patient attends medical appts.) Physical Status: : Hearing impaired Physical Status: : Independent with ADL's Equipment needed for post hospitalization: : Walker - Rolling Is there a likelihood that the patient will require additional services to return to the preadmission environment? : Yes Living Arrangements: : Home with Spouse/Significant Other Other Equipment comments: : MAY NEED A WALKER? Results of this evaluation have been discussed with: : Spouse Living arrangements comments: : LIVES WITH SPOUSE Baseline cognitive status: : Confused Physical environment modification needed / anticipated for discharge: : Yes Medication Management: : Patient states can afford medications Planned post hospital services available for patient? : No Pharmacy name(s): : [facility] Planned post hospital services covered by insurance plan? : Yes Does Patient have transportation to get home and to follow-up medical appointments when discharged from the hospital? : Yes Would patient like to participate in any Care Coordination programs (if applicable): : Not applicable Does the patient have electricity at home? : Yes Does the patient have running water in their house? : Yes Equipment in use: : None Other Equipment comments: : X 1 STEP Mental health screen: : No mental health history Psychosocial status: : Adult with cognitive limitations Abuse/Neglect: : None DCP Re-evaluation QUESTION: ANSWER Would patient like to participate in any Care Coordination programs (if applicable): : Not applicable PATIENT: ZEUS SANDEROSN ENCOUNTER: [id number] MEDICAL RECORD#: [id number] ADMISSION DATE: 11/21/2020 DISCHARGE DATE: ATTENDING MD: JIN LUZ : AGE: 70 MARITAL STATUS: M DC PLAN ID: [id number] FACILITY: [facility] PRINTED ON: 11/28/20 14:38 CT All edits/amendments must be made on the electronic document DICTATION DATE: 11/28/201437 JUTE BAG CUTTING MACHINE OPERATOR: LARS 11/28/20 143 RPT#: [id number] DC DATE: STATUS: ADM IN [facility] [address] [place] [address] END OF REPORT
--- NOTE | 2020-11-28 14:45 | NUR ---
IN ROOM. FREE FROM SIGNS OF DISTRESS. BED LOW POSITION, CALL LIGHT IN REACH. WILL CONTINUE TO MONITOR.
--- NOTE | 2020-11-28 14:52 | NUR ---
GT BELT, PATIENT WALKED 250 FEET WITH WALKER WITH MIN ASST.
--- NOTE | 2020-11-28 16:17 | NUR ---
OT NOTE: PT COMPLETED SUPINE TO SIT WITH CGA. PT COMPLETED ADL MOB WITH CGA. PT COMPLETED BUE AROM EXS TOLERATED. PT COMPLETED LB HYGIENE WITH MIN A. PT HAD SPILLAGE WITH URINAL. 0-127 THANK YOU,SETH HOBBS
--- NOTE | 2020-11-29 10:20 | MORECARE ---
CASE MANAGEMENT DISCHARGE SUMMARY PATIENT: ZEUS SANDERSON SR UNIT: [id number] ADM DATE: 11/21/20 AGE: 70 : 49 SEX: M ROOM/BED: D.2220 AUTHOR: POLO,DOC PHYSICIAN: REFERRING PHYSICIAN: HORTENCIA LANE MD DATE OF SERVICE: 11/29/20 Case Management Discharge Planning Summary COMMENTS ENTERED DATE: 11/28/20 14:28 CT COMMENT TYPE: Discharge Planning REVIEWER: Rosa Isela Montez CARE IV WILL ACCEPT THE PATIENT AND WILL BE ABLE TO START CARE TOMORROW ENTERED DATE: 11/28/20 13:33 CT COMMENT TYPE: Discharge Planning REVIEWER: Rosa Isela Montez I spoke with about the anticipated discharge today. She stated that they will be staying with her granddaughter Karolyn for a little bit till she knows she can do it on her own. Karolyn Hicks ( granddaughter) [address] [facility] [place] [address] IMM SERVED AND EXPLAINED. [facility] CAN TAKE THE PATIENT THE SOONEST. I HAVE REACHED OUT TO CARE IV THEY WILL BE ABLE TO SEE THE PATIENT THEY CAN SEE HIM ON THURSDAY PER THE HE HAS A WALKER AT HOME FOR HIM CM TO FOLLOW AND ASSIST NEEDED ENTERED DATE: 11/26/20 13:13 CT COMMENT TYPE: Discharge Planning REVIEWER: Rosa Isela Montez CM met with patient to complete initial dc planning assessment. CM educated patient on the CM role and verbal consent given by patient to complete assessment. Patient is very hard of hearing, but also appeared to be confused. I called his and spoke with Steven about his PLOF and DC plans. She stated that he was independent with his care 9 for the most part) at home. She also stated that she thought he was confused yesterday. Patient lives at home with his spouse. CM discussed availability of home health, rehab services, and medical equipment. She was unsure of what discharge needs/plan he will need. She stated that Dr Burgess is his PCP and he uses [facility]. She was also concerned because she stated that the nurse told her that he was getting medicine because of ETOH abuse, she wanted that removed from his record. She stated that he does not and has never drank. I have shared this information with Elizabeth Choi APN. CM will continue to follow and will assist as needed with dc plans/needs. 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 Inadequate (3+ ED visits in 6 mos., readmits within 30 days, 2+ hospital admissions in 1 yr.) Patient and/or caregiver agree upon recommended discharge plan? : Yes Family / Caregiver's ability to cope with chronic illness: : a. Adequate (ability to meet patient's medical needs, ensures patient attends medical appts.) Patient's current cognitive status: : Confused Patient gives permission to discuss discharge plans with: (name, relationship and number) : , STEVEN Does the patient have the ability to pay for or attain post discharge needs / services? : Yes Functional screen assessment: : New onset in difficulty in gait, balance, or transfer difficulties Family / Caregiver's ability to cope with chronic illness: : a. Adequate (ability to meet patient's medical needs, ensures patient attends medical appts.) Physical Status: : Hearing impaired Physical Status: : Independent with ADL's Equipment needed for post hospitalization: : Walker - Rolling Is there a likelihood that the patient will require additional services to return to the preadmission environment? : Yes Living Arrangements: : Home with Spouse/Significant Other Other Equipment comments: : MAY NEED A WALKER? Results of this evaluation have been discussed with: : Spouse Living arrangements comments: : LIVES WITH SPOUSE Baseline cognitive status: : Confused Physical environment modification needed / anticipated for discharge: : Yes Medication Management: : Patient states can afford medications Planned post hospital services available for patient? : No Pharmacy name(s): : [facility] Planned post hospital services covered by insurance plan? : Yes Does Patient have transportation to get home and to follow-up medical appointments when discharged from the hospital? : Yes Would patient like to participate in any Care Coordination programs (if applicable): : Not applicable Does the patient have electricity at home? : Yes Does the patient have running water in their house? : Yes Equipment in use: : None Other Equipment comments: : X 1 STEP Mental health screen: : No mental health history Psychosocial status: : Adult with cognitive limitations Abuse/Neglect: : None DCP Re-evaluation QUESTION: ANSWER Would patient like to participate in any Care Coordination programs (if applicable): : Not applicable PATIENT: ZEUS SANDERSON ENCOUNTER: [id number] MEDICAL RECORD#: [id number] ADMISSION DATE: 11/21/2020 DISCHARGE DATE: 11/28/2020 ATTENDING MD: JIN LUZ : [birth year] AGE: 70 MARITAL STATUS: M DC PLAN ID: [id number] FACILITY: [facility] PRINTED ON: 11/29/20 10:20 CT All edits/amendments must be made on the electronic document DICTATION DATE: 11/29/20 1020 AIRCRAFT LOG CLERK: LARS 11/29/20 1020 RPT#: [id number] DC DATE:11/28/20 STATUS: DIS IN [facility] [address] [place] [address] END OF REPORT
== END 2020-11-28 17:11 | disposition home health service (06) | DRG 433 ==
LOC: D.ER 13:12 → OBSVTIME 17:03 → D.M2 17:03 → D.MS 11-21 12:50 → D.ICU 11-21 19:35 → D.MS 11-22 11:57
PROVIDERS: Emergency Medicine; General Practice; ADMIT Emergency Medicine; ATTEND Emergency Medicine
PROC: 0W9G3ZZ Drainage of Peritoneal Cavity, Percutaneous Approach (ICD-10-PCS; principal; 2020-11-26 13:00)
DX: K74.60 Unspecified cirrhosis of liver (principal); R18.8 Other ascites; K76.6 Portal hypertension; K86.89 Other specified diseases of pancreas; R00.1 Bradycardia, unspecified; D64.9 Anemia, unspecified; E87.6 Hypokalemia; R73.9 Hyperglycemia, unspecified; I10 Essential (primary) hypertension; G89.29 Other chronic pain; M54.9 Dorsalgia, unspecified; F41.9 Anxiety disorder, unspecified; T42.4X1A Poisoning by benzodiazepines, accidental (unintentional), initial encounter

== ENCOUNTER 2020-12-05 05:43 | Day surgery (SDC) | payer MEDICARE, OTHER ==
--- NOTE | 2020-12-04 14:17 | NUR ---
PT CONFIRMED: NPO AFTER MIDNIGHT ARRIVAL TIME: 0530 THINNERS: NO FIRE SAFETY MANAGER: YES - DAUGHTER
[~2020-12-05] VITALS: Ht 180.3 cm; Wt 88.6 kg
[~2020-12-05 05:43] MED LIST changes: +SOMA250 MG PO
[2020-12-05 06:41] LABS: EOSINOPHILS 4.9 % (0-7); HEMATOCRIT 38.1 % (42.0-54.0); HEMOGLOBIN 12.7 g/dL (13.5-17.5); IMMATURE GRANULOCYTES 0.1 % (0-5); LYMPHOCYTE ABS# 1.08 10x3/uL (1.32-3.57); LYMPHOCYTES 15.6 % (15-50); MCH 31.8 pg (26.0-34.0); MCHC 33.3 g/dL (31.0-37.0); MCV 95.5 fL (80.0-100.0); MEAN PLATELET VOLUME 10.5 fL (7.4-10.4); NEUTROPHIL ABS# 4.65 10x3/uL (1.78-5.38); NEUTROPHILS 67.4 % (40-80); PLATELET COUNT 187 10x3/uL (130-400); RBC 3.99 10x6/uL (4.20-6.10); RDW 14.4 % (11.5-14.5); WBC 6.9 10x3/uL (4.8-10.8)
[2020-12-05 07:03] LABS: ALBUMIN 2.2 g/dL (3.4-5.0); ANION GAP 8.7 mmol/L (8-16); BILIRUBIN - TOTAL 0.65 mg/dL (0.2-1.3); CALCIUM 8.1 mg/dL (8.5-10.1); CARBON DIOXIDE 31.8 mmol/L (21.0-32.0); CREATININE - SERUM 1.2 mg/dL (0.6-1.3); POTASSIUM - SERUM 3.5 mmol/L (3.5-5.1); PROTEIN - SERUM 8.1 g/dL (6.4-8.2)
[2020-12-05 07:09] LABS: INR 1.31 (0.85-1.17); PROTIME 15.1 SECONDS (11.6-15.0)
[2020-12-05 07:20] VITALS: Ht 180.3 cm; Wt 88.6 kg
--- NOTE | 2020-12-05 09:07 | NUR ---
0900 ALBUMIN FROM SPECIALS HAS COMPLETED, 2ND ALBUMIN 25GM IV GIVEN E-MAR INDICATED.
--- NOTE | 2020-12-05 10:34 | NUR ---
1030 ALBUMIN HAS COMPLETED, IV DC'D WITH CATH INTACT. DC INSTS. REVIEWED VOICED UNDERSTANDING, HAS DONE THIS BEFORE. GETTING DRESSED WILL BE RELEASED IN WC.
== END 2020-12-05 10:40 | disposition home or self-care (01) ==
LOC: D.SP 05:43 → D.CT 08:00 → D.SP 10:40
PROVIDERS: ATTEND General Practice
DX: R18.8 Other ascites (principal); K74.60 Unspecified cirrhosis of liver